=== PATIENT | female | born 1995 | race Caucasian/White ===

== ENCOUNTER 2020-12-25 12:17 | Emergency (ER) | payer OTHER, SELFPAY ==
[2020-12-25 12:24] VITALS: BP 156/100; PULSE 110; RESP 20; TEMP 36.9; O2SAT 99; BMI 31.3
--- NOTE | 2020-12-25 12:43 | ED.SKABFB ---
HPI - Skin/Abscess/Foreign Bdy General Chief complaint: Skin/Abscess/Foreign Body Stated complaint: cyst on inside rt thigh Time Seen by Provider: 12/25/20 12:43 Source: patient Mode of arrival: ambulatory Limitations: no limitations History of Present Illness HPI narrative: 25 y/o female with painful abscess to right inguinal area for the last 1 week. She states it has been doubling in size each day. She noted some yellow drainage from it this morning. She called her PCP who instructed her to come to the ER for further evaluation. She denies fever, chills, N/V, urinary symptoms. She reports she may be and is requesting a test. complaint: abscess/boil Onset (ago): week(s) (1) Tetanus up to date: no Location: buttocks Severity: severe Quality: burning and aching Pain Consistency: constant Relieving factors: cold therapy Exacerbating factors: palpation and movement Context: none Associated symptoms: denies other symptoms Treatments prior to arrival: attempted to drain pus at home Related Data Previous Rx's Medication Instructions Recorded cephalexin 500 mg PO Q6H 7 Days #28 cap 12/25/20 Allergies Allergy/AdvReac Type Severity Reaction Status Date / Time No Known Allergies Allergy Unverified 07/30/20 17:01 [No Known Allergies*] Review of Systems Review of Systems: Constitutional: No Fever, No Chills Gastrointestinal: No Nausea, No Vomiting, No Diarrhea, No abdominal Pain Genitourinary: No Dysuria, No Urinary Frequency, No Hematuria Musculoskeletal: No joint pain, No Myalgias Skin: + Skin Lesions, No rash Neuro: No Weakness, No Numbness, No Dizziness, No Headache Psych: + Anxiety/Panic, No Depression Heme/Lymph: No Bruising, No Lymphadenopathy PMFSH Past Medical History Attestation statement: The following information was validated with the patient. Medical History (Updated 12/25/20 @ 13:49 by FLORENCIO Johnson) No known health problems No known health problems Social History Social History Advance Directives: Yes Advance Directives Information Provided: No Advance Directives on File: No Physical Exam Vital Signs: Vital Signs: Last Vital Signs Temp 98.5 F 12/25/20 12:24 Pulse 110 H 12/25/20 12:24 Resp 20 12/25/20 12:24 BP 156/100 H 12/25/20 12:24 Pulse Ox 99 12/25/20 12:24 Body Mass Index 31.3 Appearance: Alert. Oriented X3. No acute distress. HEENT: normal inspection CVS: tachycardic, regular rhythm. Pulses normal. Respiratory: No respiratory distress. Skin: Skin warm and dry. Normal skin color. Normal skin turgor. No rashes. Extremities: right lower buttocks/inguinal area with 6cm erythematous and warm patch of skin with central area of fluctuance, small darkened area centrally. tender to touch and warm Neuro: Oriented X 3. No motor deficit. No sensory deficit. Course Course Course Narrative: 25 y/o female presenting with right sided inguinal abscess x1 week. amenable to drainage. Tachycardia on arrival noted, likely related to anxiety and not sepsis. No fevers and cellulitis is very localized. No evidence of gangrene or invasive infection. Will preform I&D and start abx for cellulitis. Patient agreeable with plan. Reevaluation(s) Reevaluation #1: UPreg weakly positive. Patient informed. She will follow up with her [employer]. Will treat with Keflex alone, low risk for MRSA. Stable for d/c with plan for re-evaluation in 2 days. Procedures Abscess I/D Site: lower extremity Side (if applicable): right Local Anesthetic: lidocaine 2% Amount of anesthesia used (mL): 3 Technique: incised with blade Sent for culture/gram staining?: No Irrigation: Yes Packing used?: iodoform MDM - Skin/Abscess/Foreign Bdy Lab Data Labs: Lab Results 12/25/20 Range/Units 13:26 Urine Test WEAKLY POSITIVE H (NEGATIVE) Discharge Plan Discharge Clinical Impression: Abscess of skin or subcutaneous tissue Qualifiers: Site of cutaneous abscess: buttock Qualified Code(s): L02.31 - Cutaneous abscess of buttock Cellulitis Qualifiers: Site of cellulitis: buttock Qualified Code(s): L03.317 - Cellulitis of buttock Qualifiers: Weeks of gestation: less than 8 weeks Qualified Code(s): Z3A.01 - Less than 8 weeks gestation of Patient Disposition: Home, Self-Care Instructions: (ED), Abscess Incision and Drainage (DC) Additional Instructions: Your pregnany test today was weakly positive Recommend taking another home test at home tomorrow. Take vitamins Follow up with your [employer] Take the prescribed antibiotics as directed. Continue to use warm compresses to the area several times per day. Present back to the ER in 2 days for packing removal and re-evaluation. Prescriptions: New cephalexin 500 mg capsule 500 mg PO Q6H 7 Days Qty: 28 RF: 0
[2020-12-25] MEDS: Lidocaine HCl 2 % MPF 5 ML VIAL INFILTRATI (13:05)
[2020-12-25 13:40] LABS: UPreg QC Valid YES; Urine Pregnancy WEAKLY POSITIVE (NEGATIVE)
== END 2020-12-25 14:07 | disposition home or self-care (01) ==
PROVIDERS: Physician Assistant; Emergency Provider Emergency Medicine Emergency Medical Services
DX: O26.891 Other specified pregnancy related conditions, first trimester (principal); L02.31 Cutaneous abscess of buttock; L03.317 Cellulitis of buttock; Z3A.01 Less than 8 weeks gestation of pregnancy
CPT/HCPCS: 10060; 81025; 90471; 90715; 99283; 99284

== ENCOUNTER → 2023-06-07 14:55 | Outpatient (BNVA) | payer OTHER, SELFPAY | PROVIDERS: Visit Provider Physician Assistant Medical | DX: S63.501A Unspecified sprain of right wrist, initial encounter (principal); X58.XXXA Exposure to other specified factors, initial encounter | CPT/HCPCS: 29125; 99204 ==

== ENCOUNTER → 2023-06-15 11:29 | Outpatient (BNVA) | payer OTHER, SELFPAY | PROVIDERS: Visit Provider Internal Medicine | DX: S63.501A Unspecified sprain of right wrist, initial encounter (principal); X58.XXXA Exposure to other specified factors, initial encounter | CPT/HCPCS: 99213 ==

== ENCOUNTER → 2023-06-29 15:39 | Outpatient (BNVA) | payer OTHER, SELFPAY | PROVIDERS: Visit Provider Internal Medicine | DX: S63.501D Unspecified sprain of right wrist, subsequent encounter (principal); X58.XXXD Exposure to other specified factors, subsequent encounter | CPT/HCPCS: 99213 ==

== ENCOUNTER 2023-07-12 10:54 | Outpatient (RCR) | payer OTHER, BC, SELFPAY | END 2023-08-07 10:50 | disposition home or self-care (01) | LOC: HO.OT 10:54 | PROVIDERS: Visit Provider Internal Medicine | DX: S63.501D Unspecified sprain of right wrist, subsequent encounter (principal) | CPT/HCPCS: 97110; 97165 ==

== ENCOUNTER → 2023-07-12 12:53 | Outpatient (BNVA) | payer OTHER, SELFPAY | PROVIDERS: Visit Provider Physician Assistant | DX: S63.501D Unspecified sprain of right wrist, subsequent encounter (principal); X58.XXXD Exposure to other specified factors, subsequent encounter | CPT/HCPCS: 99213 ==